=== PATIENT | female | born 1990 | race American Indian/Alaskan Native ===

== ENCOUNTER 2022-04-02 15:24 | Emergency (ER) | payer MEDICARE ==
[2022-04-02 15:39] VITALS: BP 183/120
--- NOTE | 2022-04-04 18:58 | Electrocardiograph Report ---
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
== END 2022-04-02 19:00 | disposition left against medical advice (07) ==
LOC: ED 15:24
DX: R42 Dizziness and giddiness (principal); Z53.21 Procedure and treatment not carried out due to patient leaving prior to being seen by health care provider
CPT/HCPCS: 93005